=== PATIENT | female | born 1990 | race American Indian/Alaskan Native ===

== ENCOUNTER 2017-08-03 13:18 | Emergency (ER) | payer SELFPAY ==
[2017-08-03 13:59] VITALS: BP 139/94
--- NOTE | 2017-08-03 16:38 | Emergency Department Report ---
ED Extremity Problem HPI - General Chief complaint: Extremity Injury, Lower Stated complaint: BOTH FEET SWOLLEN Time Seen by Provider: 08/03/17 16:22 Source: patient Mode of arrival: Ambulatory Limitations: No Limitations - History of Present Illness Initial comments: Patient is a 27-year-old black female who is currently with lower extremity pain and swelling. Patient states that her bilateral feet and ankles she's had some swelling for the last several weeks. 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 Patient states the swelling is slightly better in the mornings and collects throughout the day. Patient denies any chest pain shortness of breath nausea vomiting fevers chills decreased urination - Related Data Previous Rx's Medication Instructions Recorded Last Taken Type Furosemide [Lasix] 20 mg PO DAILY #7 tablet 08/03/17 Unknown Rx traMADol [Ultram] 50 mg PO Q6HR PRN #14 tablet 08/03/17 Unknown Rx Allergies Allergy/AdvReac Type Severity Reaction Status Date / Time No Known Allergies Allergy Unverified 08/03/17 13:59 ED Review of Systems ROS: Stated complaint: BOTH FEET SWOLLEN Other details as noted in HPI Comment: All other systems reviewed and negative ED Past Medical Hx - Past Medical History Hx Hypertension: Yes Hx Asthma: Yes - Surgical History Past Surgical History?: No - Social History Smoking Status: Current Every Day Smoker Substance Use Type: Alcohol - Medications Home Medications: Home Medications Medication Instructions Recorded Confirmed Last Taken Type Furosemide [Lasix] 20 mg PO DAILY #7 tablet 08/03/17 Unknown Rx traMADol [Ultram] 50 mg PO Q6HR PRN #14 tablet 08/03/17 Unknown Rx ED Physical Exam - General Limitations: No Limitations General appearance: alert, in no apparent distress - Head Head exam: Present: atraumatic, normocephalic - Eye Eye exam: Present: normal appearance - ENT ENT exam: Present: mucous membranes moist - Neck Neck exam: Present: normal inspection - Respiratory Respiratory exam: Present: normal lung sounds bilaterally. Absent: respiratory distress - Cardiovascular Cardiovascular Exam: Present: regular rate, normal rhythm. Absent: systolic murmur, diastolic murmur, rubs, gallop - GI/Abdominal GI/Abdominal exam: Present: soft, normal bowel sounds - Extremities Exam Extremities exam: Present: normal inspection, pedal edema - Back Exam Back exam: Present: normal inspection - Neurological Exam Neurological exam: Present: alert, oriented X3 - Psychiatric Psychiatric exam: Present: normal affect, normal mood - Skin Skin exam: Present: warm, dry, intact, normal color. Absent: rash ED Course Vital Signs 08/03/17 13:56 Temperature 98.3 F Pulse Rate 84 Respiratory 18 Rate Blood Pressure 139/94 O2 Sat by Pulse 100 Oximetry ED Medical Decision Making - Medical Decision Making Patient is exhibiting some dependent edema who suggested that the patient use compression stockings will give a short course of Lasix and something for pain and patient will be discharged home. Critical care attestation.: If time is entered above; I have spent that time in minutes in the direct care of this critically ill patient, excluding procedure time. ED Disposition Clinical Impression: Dependent edema Disposition: DC-01 TO HOME OR SELFCARE Is pt being admited?: No Does the pt Need Aspirin: No Condition: Stable Instructions: Leg Edema (ED) Prescriptions: Furosemide [Lasix] 20 mg PO DAILY #7 tablet traMADol [Ultram] 50 mg PO Q6HR PRN #14 tablet PRN Reason: Pain Referrals: YUDITH HURLEY MD [Staff Physician] - as needed
== END 2017-08-03 16:45 | disposition home or self-care (01) ==
LOC: ED 13:18
DX: R22.43 Localized swelling, mass and lump, lower limb, bilateral (principal); I10 Essential (primary) hypertension; J45.909 Unspecified asthma, uncomplicated; F17.200 Nicotine dependence, unspecified, uncomplicated
CPT/HCPCS: 99282